=== PATIENT | male | born 1990 ===

== ENCOUNTER → 2021-03-08 | Outpatient (CLI) | payer OTHER | LOC: COVID19 15:04 | PROVIDERS: ATTEND Internal Medicine | DX: Z11.52 Encounter for screening for COVID-19 (principal); Z20.822 Contact with and (suspected) exposure to COVID-19 ==

== ENCOUNTER 2022-11-08 12:54 | Emergency (ER) | payer BC | END 2022-11-08 14:37 | disposition left against medical advice (07) | LOC: ED 12:54 | DX: L23.7 Allergic contact dermatitis due to plants, except food (principal); Z53.21 Procedure and treatment not carried out due to patient leaving prior to being seen by health care provider ==

== ENCOUNTER 2024-04-17 16:02 | Emergency (ER) | payer BC ==
[~2024-04-17] VITALS: Ht 177.8 cm; Wt 122.5 kg
[2024-04-17 16:58] LABS: BASO % 0.8 % (0.0-1.0); EOS # 0.2 10*3/uL (0.0-0.4); EOS % 3.1 % (1.0-4.0); MEAN CELL VOLUME 84.8 fl (80.0-94.0); MEAN CORPUSCULAR HGB 30.3 pg (27.0-31.0); MEAN CORPUSCULAR HGB CONC 35.7 g/dl (33.0-37.0); MONO # 0.3 10*3/uL (0.1-1.0); MONO % 6.6 % (3.0-9.0); NEUT # 2.6 10*3/uL (2.3-7.9); NEUT % 53.2 % (47.0-73.0); PLATELET COUNT AUTOMATED 239 10*3/uL (130-400); RED BLOOD COUNT 5.19 10*6/uL (4.50-5.90); RED CELL DISTRI WIDTH 12.9 % (0-14.5); WHITE BLOOD COUNT 4.9 10*3/uL (4.8-10.8)
[2024-04-17 17:18] LABS: BUN 11 mg/dl (9-23); CHLORIDE 104 mmol/L (98-107); POTASSIUM 4.4 mmol/L (3.4-5.1)
== END 2024-04-17 18:07 | disposition home or self-care (01) ==
LOC: ED 16:02
PROVIDERS: Physician Assistant Medical
DX: R07.89 Other chest pain (principal); M79.602 Pain in left arm; Z91.013 Allergy to seafood